=== PATIENT | male | born 1945 | race Caucasian/White ===

== ENCOUNTER 2016-06-07 08:48 | Outpatient (CLI) | payer MEDICARE, MEDICAID | END 2016-06-07 08:49 | disposition home or self-care (01) | DX: I48.91 Unspecified atrial fibrillation (principal) ==

== ENCOUNTER 2016-06-10 08:10 | Outpatient (CLI) | payer MEDICARE, MEDICAID | END 2016-06-10 08:11 | disposition home or self-care (01) | DX: I48.91 Unspecified atrial fibrillation (principal) ==

== ENCOUNTER 2016-06-14 08:02 | Outpatient (CLI) | payer MEDICAID, MEDICARE | END 2016-06-14 08:03 | disposition home or self-care (01) | DX: I48.91 Unspecified atrial fibrillation (principal) ==

== ENCOUNTER 2016-06-18 08:14 | Outpatient (CLI) | payer MEDICARE | END 2016-06-18 08:15 | disposition home or self-care (01) | DX: I48.91 Unspecified atrial fibrillation (principal) ==

== ENCOUNTER 2016-06-21 08:04 | Outpatient (CLI) | payer MEDICARE | END 2016-06-21 08:05 | disposition home or self-care (01) | DX: I48.91 Unspecified atrial fibrillation (principal) ==

== ENCOUNTER 2016-06-28 08:07 | Outpatient (CLI) | payer MEDICARE | END 2016-06-28 08:08 | disposition home or self-care (01) | DX: I48.91 Unspecified atrial fibrillation (principal) ==

== ENCOUNTER 2016-07-05 08:20 | Outpatient (CLI) | payer MEDICARE | END 2016-07-05 08:21 | disposition home or self-care (01) | DX: I48.91 Unspecified atrial fibrillation (principal) ==

== ENCOUNTER 2016-07-19 08:11 | Outpatient (CLI) | payer MEDICARE | END 2016-07-19 08:12 | disposition home or self-care (01) | DX: I48.91 Unspecified atrial fibrillation (principal) ==

== ENCOUNTER 2016-08-02 08:05 | Outpatient (CLI) | payer MEDICARE | END 2016-08-02 08:06 | disposition home or self-care (01) | LOC: LAB.F 08:05 | PROVIDERS: ATTEND Nurse Practitioner Family | DX: I48.91 Unspecified atrial fibrillation (principal) | CPT/HCPCS: 85610 ==

== ENCOUNTER 2016-08-16 08:04 | Outpatient (CLI) | payer MEDICARE | END 2016-08-16 08:05 | disposition home or self-care (01) | LOC: LAB.F 08:04 | PROVIDERS: ATTEND Nurse Practitioner Family | DX: I48.91 Unspecified atrial fibrillation (principal) | CPT/HCPCS: 85610 ==

== ENCOUNTER 2016-09-06 08:06 | Outpatient (CLI) | payer MEDICARE | END 2016-09-06 08:07 | disposition home or self-care (01) | LOC: LAB.F 08:06 | PROVIDERS: ATTEND Nurse Practitioner Family | DX: I48.91 Unspecified atrial fibrillation (principal) | CPT/HCPCS: 85610 ==

== ENCOUNTER 2016-10-11 08:24 | Outpatient (CLI) | payer MEDICARE | END 2016-10-11 08:25 | disposition home or self-care (01) | LOC: LAB.F 08:24 | PROVIDERS: ATTEND Nurse Practitioner Family | DX: I48.91 Unspecified atrial fibrillation (principal) | CPT/HCPCS: 85610 ==

== ENCOUNTER 2016-10-29 08:01 | Outpatient (CLI) | payer MEDICARE | END 2016-10-29 08:02 | disposition home or self-care (01) | LOC: LAB.F 08:01 | PROVIDERS: ATTEND Nurse Practitioner Family | DX: I48.91 Unspecified atrial fibrillation (principal) | CPT/HCPCS: 85610 ==

== ENCOUNTER 2017-02-08 12:45 | Outpatient (CLI) | payer MEDICARE ==
[2017-02-08 18:43] LABS: CREATININE 1.4 mg/dL (0.6-1.2); POTASSIUM 4.3 mmol/L (3.5-5.0)
== END 2017-02-08 12:46 | disposition home or self-care (01) ==
LOC: LAB.F 12:45
PROVIDERS: ATTEND Internal Medicine Cardiovascular Disease
DX: R60.0 Localized edema (principal)
CPT/HCPCS: 36415; 80048

== ENCOUNTER 2017-02-17 11:48 | Outpatient (CLI) | payer MEDICARE ==
[2017-02-17 18:01] LABS: CALCIUM 8.7 mg/dL (8.5-10.3); CREATININE 1.5 mg/dL (0.6-1.2); POTASSIUM 3.1 mmol/L (3.5-5.0)
== END 2017-02-17 11:49 | disposition home or self-care (01) ==
LOC: LAB.F 11:48
PROVIDERS: ATTEND Nurse Practitioner
DX: I42.0 Dilated cardiomyopathy (principal); I50.22 Chronic systolic (congestive) heart failure; I10 Essential (primary) hypertension; I25.10 Atherosclerotic heart disease of native coronary artery without angina pectoris
CPT/HCPCS: 36415; 80048

== ENCOUNTER 2017-04-19 13:42 | Outpatient (CLI) | payer MEDICARE ==
[2017-04-19 18:14] LABS: BASOPHILS # (AUTO) 0.1 10^3/uL (0.0-0.1); BASOPHILS % (AUTO) 1.1 %; EOSINOPHILS # (AUTO) 0.3 10^3/uL (0.0-0.7); EOSINOPHILS % (AUTO) 4.7 %; HGB - HEMOGLOBIN 10.5 g/dL (14.0-18.0); LYMPHOCYTES # (AUTO) 0.8 10^3/uL (1.5-3.5); LYMPHOCYTES % (AUTO) 15.2 %; MEAN CORPUSCULAR HEMOGLOBIN 23.9 pg (27.0-31.0); MEAN CORPUSCULAR HGB CONC 31.2 g/dL (32.0-36.0); MEAN CORPUSCULAR VOLUME 76.6 fL (80.0-94.0); MEAN PLATELET VOLUME 8.3 fL (7.4-11.4); MONOCYTES # (AUTO) 0.5 10^3/uL (0.0-1.0); MONOCYTES % (AUTO) 8.5 %; NEUTROPHILS # (AUTO) 3.9 10^3/uL (1.5-6.6); NEUTROPHILS % (AUTO) 70.5 %; PLT - PLATELET COUNT 189 10^3/uL (130-450); RED BLOOD COUNT 4.39 10^6/uL (4.70-6.10); RED CELL DISTRIBUTION WIDTH 22.1 % (12.0-15.0); WHITE BLOOD COUNT 5.6 x10^3/uL (4.8-10.8)
[2017-04-19 18:36] LABS: PLATELET ESTIMATE, MANUAL NORMAL (130-450,000) (NORMAL); PLATELET MORPHOLOGY NORMAL APPEARANCE (NORMAL)
== END 2017-04-19 13:43 | disposition home or self-care (01) ==
LOC: LAB.F 13:42
PROVIDERS: ATTEND Internal Medicine Cardiovascular Disease
DX: D50.9 Iron deficiency anemia, unspecified (principal); I42.0 Dilated cardiomyopathy; I50.22 Chronic systolic (congestive) heart failure; I10 Essential (primary) hypertension; I25.10 Atherosclerotic heart disease of native coronary artery without angina pectoris
CPT/HCPCS: 36415; 85025

== ENCOUNTER 2017-07-20 11:04 | Outpatient (CLI) | payer MEDICARE, MEDICAID | END 2017-07-20 11:05 | disposition home or self-care (01) | LOC: RT.S 11:04 | PROVIDERS: ATTEND Nurse Practitioner Family | DX: I48.91 Unspecified atrial fibrillation (principal) | CPT/HCPCS: 93005 ==

== ENCOUNTER 2017-10-04 09:38 | Outpatient (CLI) | payer MEDICARE, MEDICAID ==
[2017-10-04 17:43] LABS: BASOPHILS % (AUTO) 0.1 %; EOSINOPHILS % (AUTO) 0.4 %; HGB - HEMOGLOBIN 12.9 g/dL (14.0-18.0); LYMPHOCYTES # (AUTO) 0.4 10^3/uL (1.5-3.5); LYMPHOCYTES % (AUTO) 7.6 %; MEAN CORPUSCULAR HGB CONC 32.6 g/dL (32.0-36.0); MEAN CORPUSCULAR VOLUME 85.9 fL (80.0-94.0); MEAN PLATELET VOLUME 9.2 fL (7.4-11.4); MONOCYTES # (AUTO) 0.9 10^3/uL (0.0-1.0); MONOCYTES % (AUTO) 16.1 %; NEUTROPHILS % (AUTO) 75.8 %; PLT - PLATELET COUNT 98 10^3/uL (130-450); RED BLOOD COUNT 4.62 10^6/uL (4.70-6.10); RED CELL DISTRIBUTION WIDTH 28.7 % (12.0-15.0); WHITE BLOOD COUNT 5.3 x10^3/uL (4.8-10.8)
[2017-10-04 18:04] LABS: ALBUMIN 3.7 g/dL (3.2-5.5); ALBUMIN/GLOBULIN RATIO 0.9 (1.0-2.2); CALCIUM 8.9 mg/dL (8.5-10.3); CREATININE 1.2 mg/dL (0.6-1.2); TOTAL PROTEIN 7.6 g/dL (6.7-8.2)
[2017-10-04 19:47] LABS: PLATELET ESTIMATE, MANUAL DECREASED (<130,000) (NORMAL); PLATELET MORPHOLOGY 1+ GIANT PLATELETS (NORMAL)
== END 2017-10-04 09:39 | disposition home or self-care (01) ==
LOC: LAB.F 09:38
PROVIDERS: ATTEND Internal Medicine
DX: R50.9 Fever, unspecified (principal)
CPT/HCPCS: 36415; 80053; 85025; 87077; 87086; 87181

== ENCOUNTER 2017-12-30 08:31 | Outpatient (CLI) | payer MEDICARE, MEDICAID ==
[2017-12-30 10:52] LABS: ALT ALANINE AMINOTRANSFERASE 17 IU/L (10-60); AST ASPARTATE AMINOTRANSFERASE 25 IU/L (10-42); CHOL/HDL RATIO 4.3 (<5.0); CHOLESTEROL 150 mg/dL; HDL CHOLESTEROL 35 mg/dL; LDL CHOLESTEROL,CALCULATED 95 mg/dL; LDL/HDL RATIO 2.7 (<3.6); VLDL CHOLESTEROL 20 mg/dL
== END 2017-12-30 08:32 | disposition home or self-care (01) ==
LOC: LAB.F 08:31
PROVIDERS: ATTEND Internal Medicine Cardiovascular Disease
DX: I25.10 Atherosclerotic heart disease of native coronary artery without angina pectoris (principal)
CPT/HCPCS: 36415; 80061; 83721; 84450; 84460

== ENCOUNTER 2018-05-19 08:16 | Outpatient (CLI) | payer MEDICARE, MEDICAID ==
[2018-05-19 10:24] LABS: ALBUMIN 3.9 g/dL (3.2-5.5); ALBUMIN/GLOBULIN RATIO 1.3 (1.0-2.2); ALKALINE PHOSPHATASE 54 IU/L (42-121); ALT ALANINE AMINOTRANSFERASE 15 IU/L (10-60); AST ASPARTATE AMINOTRANSFERASE 23 IU/L (10-42); BILIRUBIN,TOTAL 1.4 mg/dL (0.2-1.0); BUN - BLOOD UREA NITROGEN 26 mg/dL (6-20); CALCIUM 8.8 mg/dL (8.5-10.3); CARBON DIOXIDE - CO2 25 mmol/L (21-32); CHLORIDE 103 mmol/L (101-111); CHOL/HDL RATIO 2.9 (<5.0); CHOLESTEROL 96 mg/dL; CREATININE 1.2 mg/dL (0.6-1.2); GFR - MDRD 59 (>89); GLUCOSE 127 mg/dL (70-100); HDL CHOLESTEROL 33 mg/dL; LDL CHOLESTEROL,CALCULATED 54 mg/dL; LDL/HDL RATIO 1.6 (<3.6); SODIUM 138 mmol/L (135-145); TOTAL PROTEIN 6.8 g/dL (6.7-8.2); VLDL CHOLESTEROL 9 mg/dL
[2018-05-19 10:26] LABS: HGB - HEMOGLOBIN 14.3 g/dL (14.0-18.0); MEAN CORPUSCULAR HGB CONC 33.7 g/dL (32.0-36.0); MEAN CORPUSCULAR VOLUME 98.1 fL (80.0-94.0); MEAN PLATELET VOLUME 9.6 fL (7.4-11.4); RED BLOOD COUNT 4.35 10^6/uL (4.70-6.10)
== END 2018-05-19 08:17 | disposition home or self-care (01) ==
LOC: LAB.F 08:16
PROVIDERS: ATTEND Internal Medicine
DX: E78.2 Mixed hyperlipidemia (principal); R53.83 Other fatigue
CPT/HCPCS: 36415; 80053; 80061; 83721; 84443; 85027

== ENCOUNTER 2018-07-14 07:53 | Outpatient (CLI) | payer MEDICARE, MEDICAID ==
[2018-07-14 10:30] LABS: CALCIUM 8.7 mg/dL (8.5-10.3); CREATININE 1.5 mg/dL (0.6-1.2)
== END 2018-07-14 07:54 | disposition home or self-care (01) ==
LOC: LAB.F 07:53
PROVIDERS: ATTEND Physician Assistant Medical
DX: I50.22 Chronic systolic (congestive) heart failure (principal)
CPT/HCPCS: 36415; 80048

== ENCOUNTER 2018-07-26 07:50 | Outpatient (CLI) | payer MEDICARE, MEDICAID ==
[2018-07-26 10:27] LABS: CREATININE 1.3 mg/dL (0.6-1.2)
[2018-07-26 12:07] LABS: CALCIUM 9.2 mg/dL (8.5-10.3)
== END 2018-07-26 07:51 | disposition home or self-care (01) ==
LOC: LAB.F 07:50
PROVIDERS: ATTEND Physician Assistant Medical
DX: I12.9 Hypertensive chronic kidney disease with stage 1 through stage 4 chronic kidney disease, or unspecified chronic kidney disease (principal); I25.10 Atherosclerotic heart disease of native coronary artery without angina pectoris; I42.0 Dilated cardiomyopathy; I50.22 Chronic systolic (congestive) heart failure; R42 Dizziness and giddiness
CPT/HCPCS: 36415; 80048

== ENCOUNTER 2018-09-04 11:14 | Emergency (ER) | payer MEDICARE, MEDICAID ==
[2018-09-04 11:25] VITALS: BP 99/54
--- NOTE | 2018-09-04 12:47 | ED Physician Documentation ---
PD HPI HEENT - Stated complaint Stated Complaint: TOOTH PAIN - Chief complaint Chief Complaint: General - History obtained from History obtained from: Patient - History of Present Illness Timing - onset: How many days ago (2-3) Timing - duration: Days Timing - details: Gradual onset, Still present Location: Tooth (left lower) Worsens: Swalllowing, Temperatures, Other (chewing) Associated symptoms: No: Fever, Congestion, Facial swelling Recently seen: Not recently seen Review of Systems Constitutional: denies: Fever Nose: denies: Rhinorrhea / runny nose, Congestion Throat: reports: Dental pain / toothache. denies: Sore throat Cardiac: denies: Chest pain / pressure Respiratory: denies: Cough GI: denies: Nausea, Vomiting, Diarrhea Skin: denies: Rash, Lesions PD PAST MEDICAL HISTORY - Past Medical History Cardiovascular: Hypertension, High cholesterol, [place] - Past Surgical History Cardiovascular: Coronary stent, Angioplasty - Present Medications Home Medications: Ambulatory Orders Medication Instructions Recorded Confirmed Atorvastatin Calcium [Lipitor] 40 mg DAILY 03/10/16 03/10/16 Carvedilol [Coreg] 25 mg BID 03/10/16 03/10/16 RX: Lisinopril 10 mg BID 03/10/16 03/10/16 RX: Spironolactone 25 mg DAILY 03/10/16 03/10/16 Chlorhexidine Gluconate [Peridex] 5 ml PO TID #118 ml 09/04/18 RX: Doxycycline Hyclate 100 mg PO BID #15 capsule 09/04/18 RX: Naproxen 375 mg PO BID #20 tablet 09/04/18 - Allergies Allergies/Adverse Reactions: Allergies Allergy/AdvReac Type Severity Reaction Status Date / Time cortisone Allergy Rash Verified 09/04/18 11:25 warfarin [From Coumadin] Allergy Rash Verified 09/04/18 11:25 - Social History Does the pt smoke?: No Smoking Status: Never smoker Does the pt drink ETOH?: No PD ED PE NORMAL - Vitals Vital signs reviewed: Yes - General General: Alert and oriented X 3, No acute distress, Well developed/nourished - HEENT HEENT: Pharynx benign. No: Dentition benign (multiple caries and has swelling and tenderness along buccal gum left lower. No swelling lingual side. ) - Neck Neck: Supple, no meningeal sign, No adenopathy - Cardiac Cardiac: RRR, No murmur - Respiratory Respiratory: Clear bilaterally Results - Vitals Vitals: Vital Signs - 24 hr 09/04/18 11:22 Temperature 36.9 C Heart Rate 64 Respiratory 14 Rate Blood Pressure 99/54 L O2 Saturation 95 Oxygen O2 Source Room air PD MEDICAL DECISION MAKING - ED course Complexity details: considered differential (left lower dental caries with swelling/tender at gum line. ), d/w patient Departure - Departure Disposition: 01 Home, Self Care Clinical Impression: Dental infection Condition: Stable Record reviewed to determine appropriate education?: Yes Instructions: ED Abscess Dental Prescriptions: Chlorhexidine Gluconate [Peridex] 5 ml PO TID #118 ml RX: Doxycycline Hyclate 100 mg PO BID #15 capsule RX: Naproxen 375 mg PO BID #20 tablet Comments: Stay well-hydrated. Use antiseptic mouth rinse to 3 times daily. Use doxycycline antibiotic twice daily for a week for the infection. Naproxen anti-inflammatory twice daily for inflammation and pain. Add Tylenol if needed for pain. Follow-up with your dentist later this week. Discharge Date/Time: 09/04/18 13:49
[2018-09-04] MEDS ORDERED: DOXYCYCLINE 100 MG TABLET PO STA (13:05)
[2018-09-04] MEDS ORDERED: NAPROXEN 250 MG TABLET PO STA (13:05)
== END 2018-09-04 13:49 | disposition home or self-care (01) ==
LOC: ED 11:14
DX: K04.7 Periapical abscess without sinus (principal); K02.9 Dental caries, unspecified; I10 Essential (primary) hypertension
CPT/HCPCS: 99283; A9270

== ENCOUNTER 2019-04-09 11:56 | Emergency (ER) | payer MEDICARE, MEDICAID ==
[2019-04-09] MEDS ORDERED: TETANUS/DIPHTHERIA/PERTUSSIS 0.5 ML SYRINGE IM ONE (12:56)
--- NOTE | 2019-04-09 13:41 | ED Physician Documentation ---
PD HPI UPPER EXT INJURY - Stated complaint Stated Complaint: R HAND FINGER INJ - Chief complaint Chief Complaint: Laceration - History obtained from History obtained from: Patient - History of Present Illness Location: Right, Finger (5th) Type of injury: Laceration Where injury occurred: Home Timing - onset: Last night Timing - details: Abrupt onset Pain level max: 2 Pain level now: 1 Improved by: Rest Worsened by: Moving, Palpating - Additonal information Additional information: Patient states that he lacerated his right fifth digit on a mandolin slicer last night. Unable to stop the bleeding. Came in for evaluation this morning. Unknown last tetanus. Patient is right-handed. Review of Systems Neurologic: denies: Focal weakness, Numbness PD PAST MEDICAL HISTORY - Past Medical History Past Medical History: Yes Cardiovascular: Congestive heart failure, Hypertension, High cholesterol, [place] Respiratory: None Neuro: None Endocrine/Autoimmune: None GI: None : None HEENT: None Psych: None Musculoskeletal: None Derm: None - Past Surgical History Past Surgical History: Yes General: Appendectomy Cardiovascular: CABG, Coronary stent, Pacemaker, Angioplasty - Present Medications Home Medications: Ambulatory Orders Medication Instructions Recorded Confirmed Atorvastatin Calcium [Lipitor] 40 mg DAILY 03/10/16 03/10/16 Carvedilol [Coreg] 25 mg BID 03/10/16 03/10/16 Spironolactone 25 mg DAILY 03/10/16 03/10/16 lisinopriL [Lisinopril] 10 mg BID 03/10/16 03/10/16 Chlorhexidine Gluconate [Peridex] 5 ml PO TID #118 ml 09/04/18 Doxycycline Hyclate 100 mg PO BID #15 capsule 09/04/18 Naproxen 375 mg PO BID #20 tablet 09/04/18 - Allergies Allergies/Adverse Reactions: Allergies Allergy/AdvReac Type Severity Reaction Status Date / Time cortisone Allergy Rash Verified 04/09/19 12:03 warfarin [From Coumadin] Allergy Rash Verified 04/09/19 12:03 - Social History Does the pt smoke?: No Smoking Status: Never smoker Does the pt drink ETOH?: No Does the pt have substance abuse?: No - Immunizations Immunizations are current?: Yes - POLST Patient has POLST: No PD ED PE NORMAL - Vitals Vital signs reviewed: Yes - General General: Alert and oriented X 3, No acute distress - Derm Derm: Warm and dry - Extremities Extremities: Other (R 5th digit small avulsion on finger tip. no bone visible. superficial. NVI) - Neuro Neuro: Alert and oriented X 3 - Psych Psych: Normal mood, Normal affect Results - Vitals Vitals: Vital Signs - 24 hr 04/09/19 12:03 Temperature 36.5 C Heart Rate 76 Respiratory 14 Rate Blood Pressure 137/70 H O2 Saturation 98 Oxygen O2 Source Room air Procedures - Laceration (location) r 5th digit Length in cm: 1 Wound type: Superficial, Other (avulsion) Neurovascular status: Sensory intact Tendon involvement: Tendon intact Wound Preparation: Irrigated copiously NS Skin layer closure: Dermabond Other: Patient tolerated well, No complications, Neurovascular intact Complexity: Simple PD MEDICAL DECISION MAKING - ED course Complexity details: considered differential, d/w patient ED course: Patient with a superficial avulsion on the right fifth digit. A finger tourniquet was applied, Dermabond was used to seal the wound, finger tourniquet removed and a foam finger splint was placed. Tdap given. Warnings of infection and instructions on wound care given at bedside. Also counseled on how to minimize scarring. Patient counseled regarding signs and symptoms for which I believe and urgent re-evaluation would be necessary. Patient with good understanding of and agreement to plan and is comfortable going home at this time This document was made in part using voice recognition software. While efforts are made to proofread this document, sound alike and grammatical errors may occur. Departure - Departure Disposition: 01 Home, Self Care Clinical Impression: Fingertip avulsion Qualifiers: Encounter type: initial encounter Qualified Code(s): S61.209A - Unspecified open wound of unspecified finger without damage to nail, initial encounter Condition: Good Instructions: ED Laceration Amputation Finger Tip Open Tx Follow-Up: Victorino Bains MD [Primary Care Provider] - Within 1 week (for wound check) Comments: Return if you notice redness, swelling or drainage from the wound. Your tetanus shot was updated today.The glue will fall off on its own. Wear the splint to help protect it from being bumped. Do not apply ointment as this will dissolve the glue.
[2019-04-09 14:02] VITALS: BP 144/68
== END 2019-04-09 14:02 | disposition home or self-care (01) ==
LOC: ED 11:56
DX: I10 Essential (primary) hypertension (principal); S61.216A Laceration without foreign body of right little finger without damage to nail, initial encounter; Y92.009 Unspecified place in unspecified non-institutional (private) residence as the place of occurrence of the external cause
CPT/HCPCS: 12011; 90471; 99283

== ENCOUNTER 2019-06-05 13:25 | Outpatient (CLI) | payer MEDICARE, MEDICAID ==
[2019-06-05 17:22] LABS: CALCIUM 9.5 mg/dL (8.5-10.3); CREATININE 1.5 mg/dL (0.6-1.2)
== END 2019-06-05 13:26 | disposition home or self-care (01) ==
LOC: LAB.S 13:25
PROVIDERS: ATTEND Internal Medicine
DX: I25.10 Atherosclerotic heart disease of native coronary artery without angina pectoris (principal); I47.2 Ventricular tachycardia; I50.23 Acute on chronic systolic (congestive) heart failure
CPT/HCPCS: 36415; 80048

== ENCOUNTER 2019-07-18 10:07 | Outpatient (CLI) | payer MEDICARE, MEDICAID ==
[2019-07-18 10:29] LABS: CALCIUM 9.5 mg/dL (8.5-10.3); CREATININE 1.5 mg/dL (0.6-1.2)
== END 2019-07-18 10:08 | disposition home or self-care (01) ==
LOC: LAB 10:07
PROVIDERS: ATTEND Internal Medicine Cardiovascular Disease
DX: I25.10 Atherosclerotic heart disease of native coronary artery without angina pectoris (principal); I47.2 Ventricular tachycardia; I50.23 Acute on chronic systolic (congestive) heart failure
CPT/HCPCS: 36415; 80048

== ENCOUNTER 2019-08-23 12:15 | Outpatient (CLI) | payer MEDICARE, MEDICAID ==
[2019-08-23 12:45] LABS: ALT ALANINE AMINOTRANSFERASE 26 IU/L (10-60); AST ASPARTATE AMINOTRANSFERASE 34 IU/L (10-42); CHOL/HDL RATIO 4.9 (<5.0); CHOLESTEROL 199 mg/dL; HDL CHOLESTEROL 41 mg/dL; LDL CHOLESTEROL,CALCULATED 120 mg/dL; LDL/HDL RATIO 2.9 (<3.6); VLDL CHOLESTEROL 38 mg/dL
== END 2019-08-23 12:16 | disposition home or self-care (01) ==
LOC: LAB 12:15
PROVIDERS: ATTEND Internal Medicine Cardiovascular Disease
DX: Z79.899 Other long term (current) drug therapy (principal)
CPT/HCPCS: 36415; 80061; 83721; 84450; 84460

== ENCOUNTER 2020-07-09 08:04 | Outpatient (CLI) | payer MEDICARE, MEDICAID ==
[2020-07-09 14:47] LABS: BASOPHILS % (AUTO) 0.4 %; EOSINOPHILS # (AUTO) 0.2 10^3/uL (0.0-0.7); EOSINOPHILS % (AUTO) 3.9 %; HCT - HEMATOCRIT 46.8 % (42.0-52.0); LYMPHOCYTES # (AUTO) 0.9 10^3/uL (1.5-3.5); LYMPHOCYTES % (AUTO) 16.4 %; MEAN CORPUSCULAR HEMOGLOBIN 31.8 pg (27.0-31.0); MEAN CORPUSCULAR HGB CONC 32.1 g/dL (32.0-36.0); MEAN CORPUSCULAR VOLUME 99.2 fL (80.0-94.0); MEAN PLATELET VOLUME 12.4 fL (7.4-11.4); MONOCYTES # (AUTO) 0.6 10^3/uL (0.0-1.0); MONOCYTES % (AUTO) 12.4 %; NEUTROPHILS # (AUTO) 3.5 10^3/uL (1.5-6.6); NEUTROPHILS % (AUTO) 66.5 %; PLT - PLATELET COUNT 147 10^3/uL (130-450); RED BLOOD COUNT 4.72 10^6/uL (4.70-6.10); RED CELL DISTRIBUTION WIDTH 13.7 % (12.0-15.0); WHITE BLOOD COUNT 5.2 x10^3/uL (4.8-10.8)
[2020-07-09 15:13] LABS: ALBUMIN 4.3 g/dL (3.2-5.5); ALBUMIN/GLOBULIN RATIO 1.3 (1.0-2.2); ALKALINE PHOSPHATASE 46 IU/L (42-121); ALT ALANINE AMINOTRANSFERASE 21 IU/L (10-60); AST ASPARTATE AMINOTRANSFERASE 28 IU/L (10-42); BUN - BLOOD UREA NITROGEN 51 mg/dL (6-20); CALCIUM 9.5 mg/dL (8.5-10.3); CARBON DIOXIDE - CO2 29 mmol/L (21-32); CHLORIDE 98 mmol/L (101-111); CHOL/HDL RATIO 6.2 (<5.0); CHOLESTEROL 261 mg/dL; CREATININE 1.4 mg/dL (0.6-1.2); GFR - MDRD 49 (>89); GLUCOSE 115 mg/dL (70-100); HDL CHOLESTEROL 42 mg/dL; LDL CHOLESTEROL,CALCULATED 194 mg/dL; LDL/HDL RATIO 4.6 (<3.6); POTASSIUM 3.2 mmol/L (3.5-5.0); SODIUM 137 mmol/L (135-145); TOTAL PROTEIN 7.5 g/dL (6.7-8.2); TRIGLYCERIDES 123 mg/dL; VLDL CHOLESTEROL 25 mg/dL
== END 2020-07-09 08:05 | disposition home or self-care (01) ==
LOC: LAB.S 08:04
PROVIDERS: ATTEND Internal Medicine Cardiovascular Disease
DX: I11.0 Hypertensive heart disease with heart failure (principal); I50.22 Chronic systolic (congestive) heart failure; E78.00 Pure hypercholesterolemia, unspecified; I25.10 Atherosclerotic heart disease of native coronary artery without angina pectoris; I34.0 Nonrheumatic mitral (valve) insufficiency; I35.0 Nonrheumatic aortic (valve) stenosis; I47.2 Ventricular tachycardia; I48.91 Unspecified atrial fibrillation; Z95.810 Presence of automatic (implantable) cardiac defibrillator
CPT/HCPCS: 36415; 80053; 80061; 83721; 85025

== ENCOUNTER 2020-10-06 13:20 | Outpatient (CLI) | payer MEDICARE, MEDICAID | END 2020-10-06 23:59 | disposition home or self-care (01) | LOC: COV 13:20 | PROVIDERS: ATTEND Family Medicine | DX: R05 Cough (principal); R06.02 Shortness of breath; M79.10 Myalgia, unspecified site; R53.83 Other fatigue; R09.81 Nasal congestion; J34.89 Other specified disorders of nose and nasal sinuses; Z20.822 Contact with and (suspected) exposure to COVID-19 ==

== ENCOUNTER 2021-06-26 13:11 | Outpatient (CLI) | payer MEDICARE, MEDICAID ==
[2021-06-26 20:05] LABS: CALCIUM 9.9 mg/dL (8.5-10.3); CREATININE 1.8 mg/dL (0.6-1.2); POTASSIUM 3.5 mmol/L (3.5-5.0)
== END 2021-06-26 13:12 | disposition home or self-care (01) ==
LOC: LAB.S 13:11
PROVIDERS: ATTEND Internal Medicine Cardiovascular Disease
DX: E78.5 Hyperlipidemia, unspecified (principal); I48.91 Unspecified atrial fibrillation; I50.22 Chronic systolic (congestive) heart failure
CPT/HCPCS: 36415; 80048

== ENCOUNTER 2021-07-09 10:50 | Outpatient (CLI) | payer MEDICARE, MEDICAID ==
[2021-07-09 14:52] LABS: BASOPHILS % (AUTO) 0.5 %; EOSINOPHILS # (AUTO) 0.1 10^3/uL (0.0-0.7); EOSINOPHILS % (AUTO) 2.5 %; HCT - HEMATOCRIT 48.4 % (42.0-52.0); HGB - HEMOGLOBIN 16.1 g/dL (14.0-18.0); LYMPHOCYTES # (AUTO) 0.9 10^3/uL (1.5-3.5); LYMPHOCYTES % (AUTO) 16.1 %; MEAN CORPUSCULAR HEMOGLOBIN 31.5 pg (27.0-31.0); MEAN CORPUSCULAR HGB CONC 33.3 g/dL (32.0-36.0); MEAN CORPUSCULAR VOLUME 94.7 fL (80.0-94.0); MEAN PLATELET VOLUME 11.9 fL (7.4-11.4); MONOCYTES # (AUTO) 0.8 10^3/uL (0.0-1.0); MONOCYTES % (AUTO) 14.1 %; NEUTROPHILS # (AUTO) 3.8 10^3/uL (1.5-6.6); NEUTROPHILS % (AUTO) 66.4 %; PLT - PLATELET COUNT 155 10^3/uL (130-450); RED BLOOD COUNT 5.11 10^6/uL (4.70-6.10); RED CELL DISTRIBUTION WIDTH 13.5 % (12.0-15.0); WHITE BLOOD COUNT 5.7 x10^3/uL (4.8-10.8)
== END 2021-07-09 10:51 | disposition home or self-care (01) ==
LOC: LAB.S 10:50
PROVIDERS: ATTEND Internal Medicine Cardiovascular Disease
DX: I25.10 Atherosclerotic heart disease of native coronary artery without angina pectoris (principal); I34.0 Nonrheumatic mitral (valve) insufficiency; I35.0 Nonrheumatic aortic (valve) stenosis; I42.0 Dilated cardiomyopathy; I47.2 Ventricular tachycardia; I48.91 Unspecified atrial fibrillation
CPT/HCPCS: 36415; 85025

== ENCOUNTER 2022-03-08 12:26 | Outpatient (CLI) | payer MEDICARE, MEDICAID | END 2022-03-08 23:59 | disposition home or self-care (01) | LOC: LAB.S 12:26 | PROVIDERS: ATTEND Physician Assistant Medical | DX: R30.0 Dysuria (principal) | CPT/HCPCS: 87077; 87086; 87181 ==

== ENCOUNTER 2022-06-07 16:47 | Outpatient (CLI) | payer MEDICARE, MEDICAID | END 2022-06-07 16:48 | disposition critical access hospital (66) | LOC: EMS 16:47 | DX: I46.9 Cardiac arrest, cause unspecified (principal) | CPT/HCPCS: A0425; A0433 ==

== ENCOUNTER 2022-06-07 17:07 | Emergency (ER) | payer MEDICARE, MEDICAID ==
--- NOTE | 2022-06-07 17:14 | ED Physician Documentation ---
PD HPI CPR - Stated complaint Stated Complaint: CARDIAC ARREST - Chief complaint Chief Complaint: Critical Care - History obtained from History obtained from: EMS - History of Present Illness Witnessed: Arrest witnessed EMS findings: Unresponsive, Apneic, Pulseless, PEA - Additional information Additional information: Patient brought in by EMS after cardiac arrest. Apparently they were called originally for difficulty breathing. Patient had been seen at [facility] today for a cardiology outpatient appointment. They state that he arrested in front of them in the driveway. They immediately started CPR, patient has been in PEA for the past 40 minutes. No return of spontaneous circulation. He has had epinephrine x7 according to EMS. The patient is on anticoagulants for history of atrial fibrillation. He reportedly has an AICD as well. Review of Systems Unable to obtain: Intubated PD PAST MEDICAL HISTORY - Past Medical History Cardiovascular: Congestive heart failure, Hypertension, High cholesterol, [place] Respiratory: None Neuro: None Endocrine/Autoimmune: None GI: None : None HEENT: None Psych: None Musculoskeletal: None Derm: None - Past Surgical History Past Surgical History: Yes General: Appendectomy Cardiovascular: CABG, Coronary stent, Pacemaker, Angioplasty - Present Medications Home Medications: Ambulatory Orders Medication Instructions Recorded Confirmed Atorvastatin Calcium [Lipitor] 40 mg DAILY 03/10/16 03/10/16 Carvedilol [Coreg] 25 mg BID 03/10/16 03/10/16 Spironolactone 25 mg DAILY 03/10/16 03/10/16 lisinopriL [Lisinopril] 10 mg BID 03/10/16 03/10/16 Chlorhexidine Gluconate [Peridex] 5 ml PO TID #118 ml 09/04/18 Doxycycline Hyclate 100 mg PO BID #15 capsule 09/04/18 Naproxen 375 mg PO BID #20 tablet 09/04/18 - Allergies Allergies/Adverse Reactions: Allergies Allergy/AdvReac Type Severity Reaction Status Date / Time cortisone Allergy Rash Verified 04/09/19 12:03 warfarin [From Coumadin] Allergy Rash Verified 04/09/19 12:03 - Social History Does the pt smoke?: No Smoking Status: Never smoker Does the pt drink ETOH?: No Does the pt have substance abuse?: No - Immunizations Immunizations are current?: Yes - POLST Patient has POLST: No PD ED PE NORMAL - Vitals Vital signs reviewed: Yes (ongoing CPR) - General General: Other (unresponsive) - HEENT HEENT: Other (pupils fixed, bloody sputum in ETT) - Cardiac Cardiac: Other (absent heart sounds) - Respiratory Respiratory: Other (absent breath sounds) - Abdomen Abdomen: Soft - Derm Derm: Other (cool, pale) - Neuro Neuro: Other (unresponsive) Results - Vitals Vitals: Vital Signs - 24 hr 06/07/22 17:08 Heart Rate 0 L Respiratory 12 Rate O2 Saturation 54 L Oxygen O2 Source Mechanical ventilator PD Medical Decision Making - ED course Complexity details: considered differential, d/w family (Spoke with the patient's upon arrival to the emergency department and informed her of the patient's ) ED course: CPR was continued in the emergency department. The patient remained in PEA. Ultrasound was placed on the chest and found the patient in full cardiac standstill. Given that he has been undergoing CPR with multiple rounds of epinephrine for over 45 minutes now without return of spontaneous circulation and the finding of cardiac standstill on ultrasound along with asystole on the cardiac specialist and pupils that are fixed, the code was called at 1710 as time of . Departure - Departure Disposition: 20 Clinical Impression: Cardiac arrest Discharge Date/Time: 06/07/22 19:06
--- OUTSIDE RECORDS SUMMARY | 2022-06-07 17:31 | EXTERNAL MEDICAL SUMMARY RPT | Continuity of Care Document ---
:1945 Author Organization [facility] Address [address] [place] [address] Phone Care Team Providers Name Role Phone Ayala, Provider Unavailable Unavailable Carmela Ellis, Ciara Unavailable Unavailable Tatiana Patient Registrar, Ann Marie Unavailable Un available Allergies No information. Encounters No information. Functional Status No information. Immunizations No information. Medications date description facility 2022-03-09 00:00 [facility]ixaban [facility] 2022-03-10 00:00 apixaban [facility] 2022-03-13 00:00 apixaban [facility] 2022-03-15 00:00 apixaban [facility] 2022-03-09 00[facility]00 furosemide [facility] 2022-03-10 00:00 furosemide [facility] 2022-03-13 00:00 furosemide [facility] 2022-03-15 00:00 furosemide [facility] 2022-03-15 00:00 ciprofloxacin hcl [facility] 2022-03-09 00:00 apixaban [facility] 2022-03-10 00:00 apixaban [facility] 2022-03-13 00:00 apixaban [facility] 2022-03-15 00:00 apixaban [facility] 2022-03-09 00:00 apixaban [facility] 2022-03-10 00:00 apixaban [facility] 2022-03-13 00:00 apixaban [facility] 2022-03-15 00:00 apixaban [facility] 2022-03-15 00:00 ciprofloxacin hcl [facility] 2022-03-09 00:00 amiodarone [facility] 2022-03-10 00:00 amiodarone [facility] 2022-03-13 00:00 amiodarone [facility] 2022-03-15 00:00 amiodarone [facility] 2022-03-09 00:00 potassium chloride [facility] 2022-03-10 00:00 potassium chloride [facility] 2022-03-13 00:00 potassium chloride [facility] 2022-03-15 00:00 potassium chloride [facility] 2022-03-09 00:00 furosemide [facility] 2022-03-10 00:00 furosemide [facility] 2022-03-13 00:00 furosemide [facility] 2022-03-15 00:00 furosemide [facility] 2022-03-09 00:00 amiodarone [facility] 2022-03-10 00:00 amiodarone [facility] 2022-03-13 00:00 amiodarone [facility] 2022-03-15 00:00 amiodarone [facility] 2022-03-09 00:00 furosemide [facility] [place] 2022-03-10 00:00 furosemide [facility] [place] 2022-03-13 00:00 furosemide [facility] 2022-03-15 00:00 furosemide [facility] [place] 2022-03-09 00:00 rosuvastatin [facility] 2022-03-10 00:00 rosuvastatin [facility] [place] 2022-03-13 00:00 rosuvastatin [facility] 2022-03-15 00:00 rosuvastatin [facility] 2022-03-15 00:00 ciprofloxacin hcl [facility] 2022-03-15 00:00 ciprofloxacin hcl [facility] 2022-03-09 00:00 amiodarone [facility] 2022-03-10 00:00 amiodarone [facility] 2022-03-13 00:00 amiodarone [facility] 2022-03-15 00:00 amiodarone [facility] 2022-03-09 00:00 potassium chloride [facility] 2022-03-10 00:00 potassium chloride [facility] 2022-03-13 00:00 potassium chloride [facility] 2022-03-15 00:00 potassium chloride [facility] 2022-03-09 00:00 rosuvastatin [facility] 2022-03-10 00:00 rosuvastatin [facility] 2022-03-13 00:00 rosuvastatin [facility] 2022-03-15 00:00 rosuvastatin [facility] 2022-03-09 00:00 potassium chloride [facility] 2022-03-10 00:00 potassium chloride [facility] 2022-03-13 00:00 potassium chloride [facility] 2022-03-15 00:00 potassium chloride [facility] 2022-03-09 00:00 rosuvastatin [facility] 2022-03-10 00:00 rosuvastatin [facility] 2022-03-13 00:00 rosuvastatin [facility] 2022-03-15 00:00 rosuvastatin [facility] 2022-03-09 00[facility]00 potassium chloride [facility] 2022-03-10 00:00 potassium chloride [facility] [place] 2022-03-13 00:00 potassium chloride [facility] 2022-03-15 00:00 potassium chloride [facility] 2022-03-09 00:00 amiodarone [facility] [place] 2022-03-10 00:00 amiodarone [facility] [place] 2022-03-13 00:00 amiodarone [facility] 2022-03-15 00:00 amiodarone [facility] 2022-03-09 00:00 apixaban [facility] [place] 2022-03-10 00:00 apixaban [facility] [place] 2022-03-13 00:00 apixaban [facility] [place] 2022-03-15 00:00 apixaban [facility] 2022-03-09 00:00 [facility] [place] [facility]-10 00:00 [facility]atin [facility] [place] 2022-03-13 00[facility]00 [facility]vastatin [facility] [place] 2022-03-15 00[facility]00 rosuvastatin [facility] [place] 2022-03-09 00[facility]00 furosemide [facility] [place] 2022-03-10 00[facility]00 [facility]urosemide [facility] [place] 2022-03-13 00:00 [facility]semide [facility] [place] 2022-03-15 00:00 [facility]semide [facility] [place] Problems No information. Procedures No information. Results/Labs No information. Social History No information. Vital Signs No information.
== END 2022-06-07 19:06 | disposition expired ==
LOC: EDUNIT# → ED 17:07
DX: I46.9 Cardiac arrest, cause unspecified (principal); I11.0 Hypertensive heart disease with heart failure; I50.9 Heart failure, unspecified
CPT/HCPCS: 92950; 99285